=== PATIENT | male | born 1980 | race African-American/Black ===

== ENCOUNTER 2022-12-03 16:06 | Emergency (ER) | payer MEDICAID ==
[~2022-12-03] VITALS: Ht 177.8 cm; Wt 111.1 kg
[2022-12-03 16:17] VITALS: BP_SYST 137
--- NOTE | 2022-12-03 16:23 | NUR ---
Patient to ER bed 6 to gown for evaluation. Side rails up. Report given to ADRIENNE MONTENEGRO.
--- NOTE | 2022-12-03 16:30 | NUR ---
RECEIVED PT FROM MONI RICHEY. ASSUMED CARE.
--- NOTE | 2022-12-03 16:40 | NUR ---
DR. DE AT BEDSIDE TO ASSESS PT.
[2022-12-03 17:20] LABS: BASOPHILS # (AUTO) 0.1 K/uL (0.0-0.2); BASOPHILS % (AUTO) 0.5 % (0.0-2.0); EOSINOPHILS # (AUTO) 0.1 K/uL (0.0-0.4); EOSINOPHILS % (AUTO) 0.5 % (0.0-4.0); HEMATOCRIT 48.2 % (36-54); HEMOGLOBIN 15.9 g/dL (14.0-18.0); LYMPHOCYTES % (AUTO) 24.9 % (20.5-51.5); MEAN CORPUSCULAR HEMOGLOBIN 27 pg (27-31); MEAN CORPUSCULAR HGB CONC 33 % (32-36); MEAN CORPUSCULAR VOLUME 83 fL (79.0-98.0); MONOCYTES # (AUTO) 1.3 K/uL (0.0-1.0); MONOCYTES % (AUTO) 10.9 % (1.7-9.3); NEUTROPHILS # (AUTO) 7.5 K/uL (1.8-7.7); NEUTROPHILS % (AUTO) 63.2 % (40.0-70.0); PLATELET COUNT (AUTO) 238 K/uL (130-430); RED BLOOD CELL COUNT(AUTO) 5.82 MIL/uL (4.2-6.2); RED CELL DISTRIBUTION WIDTH 15.4 % (9.0-15.0); WHITE BLOOD COUNT (AUTO) 11.9 K/uL (4.8-10.8)
[2022-12-03 17:28] LABS: ANION GAP 7 (5-15); CALCIUM 9.4 mg/dL (8.4-11.0); CHLORIDE 101 mmol/L (98-107); CREATININE 0.86 mg/dL (0.55-1.30); GLUCOSE 119 mg/dL (70-99); UREA NITROGEN, BLOOD 9 mg/dL (8-21)
[2022-12-03 17:31] LABS: GFR AFRICAN AMERICAN 124 mL/min (>90)
[2022-12-03 17:33] LABS: ALANINE AMINOTRANSFERASE 372 U/L (12-78); ALBUMIN 3.5 g/dL (3.4-4.8); AMYLASE 41 U/L (0-100); ASPARTATE AMINOTRANSFERASE 76 U/L (10-37); LIPASE 81 U/L (73-393); TOTAL BILIRUBIN 0.7 mg/dL (0.0-1.0)
--- NOTE | 2022-12-03 17:54 | NUR ---
Admit bed requested Patient will be admitted to care of . Admitted to MED SURG unit. Diagnosis SYMPTOMATIC ANEMIA Inpatient (Yes or No) YES Observation (Yes or No) NO Orientation concerns or request close to nursing station (Yes or No) NO Covid Status PENDING On vent or bipap NO Isolation requirements PENDING Needs a sitter NO From Home (Yes or if No enter name of facility) YES Requires Dialysis (Yes or No) NO Med Rec Completed (Yes of No) NO Addendum: 12/03/22 at 1811 by [email or web address] CHARTING ON WRONG PT.
--- NOTE | 2022-12-03 17:57 | NUR ---
NANI OBTAINED AND TAKEN TO LAB. PT MADE AWARE HE WILL ADMIT, PT DOES NOT WANT TO STAY. DR. DE STATED HE WILL SPEAK TO HIM. Addendum: 12/03/22 at 1759 by [email or web address] CLARIFICATION: CHARTING ON WRONG PT.
[2022-12-03] MEDS ORDERED: MORPHINE 4 MG INJ. 4 MG/ML VIAL IM ONE (18:00)
--- NOTE | 2022-12-03 18:25 | NUR ---
MORPHINE 4MG IM GIVEN TO LEFT DELTOID.
--- NOTE | 2022-12-03 19:29 | NUR ---
ENDORSED PT TO MONI MATIAS. ALL QUESTIONS AND CONCERNS ADDRESSED.
--- NOTE | 2022-12-03 19:51 | NUR ---
Patient resting quietly. No acute distress noted. Vital signs within normal range. Received in ED 6. AAO x4, VSS, RR even and unlabored. PEpigastric pain at 01/14. Denies N/V/D at this time. No IVs in place at this time.
[2022-12-03] MEDS ORDERED: IBUP-1971 PO (20:04)
[2022-12-03] MEDS ORDERED: HYDR-3917 PO (20:04)
[2022-12-03 20:15] VITALS: BP_SYST 125
--- NOTE | 2022-12-03 20:15 | NUR ---
Patient given written and verbal discharge instructions and verbalizes understanding. ER MD discussed with patient the results and treatment provided. Patient in stable condition. ID arm band removed. Rx of ibuprofen & hydrocodone given. Patient educated on pain management and to follow up with PMD. Opportunity for questions provided and answered.
== END 2022-12-03 20:15 | disposition home or self-care (01) ==
LOC: SED 16:06
DX: R07.9 Chest pain, unspecified (principal); K86.9 Disease of pancreas, unspecified; I10 Essential (primary) hypertension; Z79.899 Other long term (current) drug therapy
CPT/HCPCS: 99285; 74176; 71045; 80053; 82150; 83690; 85025; 84484; 36415; 93005; 76376; 96372; J2270